=== PATIENT | male | born 1995 | race Caucasian/White ===

== ENCOUNTER 2021-04-18 07:30 | Outpatient (CLI) | payer BC, SELFPAY ==
--- NOTE | ~2021-04-18 | US_ITS ---
EXAMINATION: US abdomen complete EXAM DATE: 04/18/2021 08:17 INDICATION: Leukopenia. TECHNIQUE: Multiple grayscale and Doppler images of the complete abdomen were obtained (by a technolo gist who performed the scan) and subsequently reviewed. There is no prior study for comparison. FINDINGS: The abdominal aorta is normal in caliber. Visualized portion IVC is patent. The pancreatic head a nd body are normal in appearance. The pancreatic tail is not visualized. The liver has normal echogenicity and contour. There are no focal liver lesions identified. There is no evidence of intrahepatic biliary duct dilation. Portal venous flow was seen in the hepatopedal , normal direction and has normal Doppler waveform. Common bile duct measures 3 mm, which is normal. The gallbladder wall is normal in thickness, with ex pected amount of distention. No sonographic evidence of pericholecystic fluid. There is no cholelit hiases. Technologist performing exam reports patient did not demonstrate sonographic Andrea's sign. Please note that this sign is less reliable in patients who have received pain medication. Right kidney: There is normal contour and echogenicity. It measures 9.6 x 4.2 x 5.2 centimeters. T here are no focal renal lesions identified. There is no hydronephrosis. Left kidney: There is normal contour and echogenicity. It measures 11.0 x 4.9 x 5.3 centimeters. T here are no focal renal lesions identified. There is no hydronephrosis. The spleen measures 11.2 centimeters and is morphologically normal. IMPRESSION: Unremarkable complete abdominal ultrasound exam. Reviewed, dictated and finalized at location A.
== END 2021-04-18 07:31 | disposition home or self-care (01) ==
PROVIDERS: PCP Internal Medicine; Visit Provider Internal Medicine Hematology & Oncology
DX: D72.819 Decreased white blood cell count, unspecified (principal)
CPT/HCPCS: 76700